=== PATIENT | male | born 1970 | race African-American/Black ===

== ENCOUNTER 2018-12-04 21:43 | Emergency (ER) | payer SELFPAY ==
[~2018-12-04] VITALS: Ht 170.2 cm; Wt 77.3 kg
[2018-12-04 21:49] VITALS: Ht 170.2 cm; Wt 77.3 kg
[2018-12-04 22:42] VITALS: BP 138/84
[2018-12-04 22:53] LABS: APPEARANCE CLEAR (CLEAR); BILIRUBIN NEGATIVE (NEGATIVE); COLOR YELLOW (YELLOW); GLUCOSE NEGATIVE (NEGATIVE); KETONE NEGATIVE (NEGATIVE); NITRITE NEGATIVE (NEGATIVE); PROTEIN NEGATIVE (NEGATIVE); UROBILINOGEN NORMAL (NORMAL)
[2018-12-04 22:54] LABS: WHITE CELLS - URINE 0-5 /hpf (0-5)
[2018-12-04 22:55] LABS: BACTERIA FEW /hpf (NONE SEEN); RED CELLS - URINE OCC /hpf (0-5)
== END 2018-12-04 22:42 | disposition home or self-care (01) ==
LOC: D.ER 21:43
PROVIDERS: Emergency Medicine
DX: A54.9 Gonococcal infection, unspecified (principal)

== ENCOUNTER 2019-05-23 22:13 | Emergency (ER) | payer SELFPAY ==
[~2019-05-23] VITALS: Ht 170.2 cm; Wt 79.5 kg
[2019-05-23 22:16] VITALS: Ht 170.2 cm; Wt 79.5 kg
[2019-05-23 22:31] LABS: APPEARANCE CLEAR (CLEAR); BILIRUBIN NEGATIVE (NEGATIVE); COLOR YELLOW (YELLOW); GLUCOSE NEGATIVE (NEGATIVE); KETONE NEGATIVE (NEGATIVE); NITRITE NEGATIVE (NEGATIVE); PROTEIN NEGATIVE (NEGATIVE); UROBILINOGEN NORMAL (NORMAL)
[2019-05-23 23:30] VITALS: BP 119/71
[2019-05-27 21:06] LABS: CHLAMYDIA TRACHOMATIS, NAA Negative (Negative)
== END 2019-05-23 23:31 | disposition home or self-care (01) ==
LOC: D.ER 22:13
PROVIDERS: Family Medicine
DX: A64 Unspecified sexually transmitted disease (principal)